=== PATIENT | female | born 1960 | race Caucasian/White ===

== ENCOUNTER 2021-05-01 10:18 | Outpatient (CLI) | payer OTHER, SELFPAY ==
--- NOTE | 2021-05-01 10:25 | MM_ITS ---
WS: [id number] BILATERAL SCREENING DIGITAL MAMMOGRAM WITH CAD HISTORY: SCREENING COMPARISON: 06/06/2019 and 03/02/2011 Bilateral CC and MLO views submitted. Computer aided detection analyzed. Breast composition: There are scattered areas of fibroglandular density. No suspicious masses, microc alcifications or architectural distortion. Stable soft tissue nodule with calcification in the anteri or RIGHT breast. No new mass or calcification. MM/[id number] IMPRESSION: BI-RADS: 2-Benign FOLLOW UP: 1 Year Follow-up
== END 2021-05-01 10:19 | disposition home or self-care (01) ==
LOC: RADSHAW 10:24
PROVIDERS: Family Provider Family Medicine; PCP Physician Assistant; Visit Provider Physician Assistant
DX: Z12.31 Encounter for screening mammogram for malignant neoplasm of breast (principal)
CPT/HCPCS: 77067

== ENCOUNTER 2022-03-11 11:21 | Outpatient (CLI) | payer OTHER, SELFPAY ==
--- NOTE | 2022-03-11 11:33 | MM_ITS ---
WS: [id number] DIAGNOSTIC BILATERAL 3D TOMOSYNTHESIS DIGITAL MAMMOGRAM WITH CAD Bilateral breast ultrasound, limited HISTORY: NIPPLE Discharge; mastodynia COMPARISON: 05/01/2021, 06/06/2019 TECHNIQUE: Bilateral craniocaudad, mediolateral oblique, and mediolateral views are submitted. Spot c ompression RIGHT and LEFT CC. Computer aided detection utilized. Breast composition: There are scattered areas of fibroglandular density. Palpable markers are placed along the anterior superior aspect of each breast. No underlying mass or distortion. There are no suha cifications or changes in the soft tissues. Similar to prior examinations. Bilateral breast ultrasound, limited. Ultrasound is directed into each breast in the area of pain. RIGHT breast image from 10-12 o'clock ar ound the nipple. There is some very minimally prominent ducts near the nipple. No soft tissue mass or distortion. The LEFT breast is imaged from 10-2 o'clock and near the nipple. No mass or distortion. Very minimally prominent ducts with no intraluminal filling defect. MM/[id number] IMPRESSION: BI-RADS: 2-Benign FOLLOW UP: 1 Year Follow-up
== END 2022-03-11 11:22 | disposition home or self-care (01) ==
LOC: RAD 11:22
PROVIDERS: PCP Physician Assistant; Visit Provider Physician Assistant
DX: N64.4 Mastodynia (principal); N64.52 Nipple discharge
CPT/HCPCS: 76642; 77062

== ENCOUNTER 2022-11-07 21:18 | Emergency (ER) | payer OTHER, SELFPAY ==
--- NOTE | 2022-11-07 21:23 | ECG_ITS ---
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 Measurements Intervals [place] Rate: 104 P: 54 MO: 142 QRS: 36 QRSD: 85 T: -5 QT: 335 QTc: 442 Interpretive Statements SINUS TACHYCARDIA POSSIBLE LEFT ATRIAL ENLARGEMENT [-0.1mV P-WAVE IN V1/V2] LOW QRS VOLTAGE IN PRECORDIAL LEADS [QRS DEFLECTION < 1.0 mV IN CHEST LEADS] NONSPECIFIC ST & T-WAVE ABNORMALITY ABNORMAL RHYTHM ECG Compared to ECG 10/04/2019 13:27:36 T-wave abnormality now present Sinus rhythm no longer present Short MO interval no longer present Electronically Signed On 11-10-2022 18:15:15 CATEGORY ANALYST by Jon Nagel M.D. [id number] f
[2022-11-07 21:27] VITALS: BP 145/89; PULSE 104; RESP 30; TEMP 36.6; O2SAT 98; BMI 36.0
--- NOTE | 2022-11-07 22:24 | XRR_ITS ---
PROCEDURE INFORMATION: Exam: XR Right Ribs Exam date and time: 11/07/2022 10:52 PM Age: 61 years old Clinical indication: Chest wall pain; Right; Additional info: R post lower rib pain from cough TECHNIQUE: Imaging protocol: Radiologic exam of the Right ribs. Views: 2 views. COMPARISON: CR XR chest 2V* [id number] 05/24/2016 7:44 AM FINDINGS: Bones/joints: Normal. Soft tissues: Normal. Other findings: Mild right hemidiaphragm elevation. XR/XR ribs RT 2V* [id number] IMPRESSION: No displaced right rib fracture or pneumothorax noted.
--- NOTE | 2022-11-07 22:24 | XRR_ITS ---
PROCEDURE INFORMATION: Exam: XR Chest Exam date and time: 11/07/2022 10:52 PM Age: 61 years old Clinical indication: Cough TECHNIQUE: Imaging protocol: Radiologic exam of the chest. Views: 2 views. COMPARISON: CR XR chest 2V* [id number] 05/24/2016 7:44 AM FINDINGS: Lungs: Unremarkable. No consolidation. Pleural spaces: Unremarkable. No pleural effusion. No pneumothorax. Heart/Mediastinum: Unremarkable. No cardiomegaly. Bones/joints: Mild spine DJD. Organs: Absent gallbladder. Mild right hemidiaphragm elevation. XR/XR chest 2V* [id number] IMPRESSION: No acute findings.
--- NOTE | 2022-11-07 22:37 | W.ED.BACK ---
HPI - Back Pain/Injury General: Chief Complaint: Back Pain/Injury Stated Complaint: SOB Time Seen by Provider: 11/07/22 21:52 Source: patient Mode of arrival: ambulatory Limitations: no limitations History of Present Illness: See nursing assessment. Patient reports that she has had cough for approximately 2 weeks after getting the flu. Patient reports cough has been productive of clear sputum. Yesterday she had a coughing episode that caused her to have pain in her right posterior lateral rib cage. She is here today because of the rib cage pain. She denies any fever. She states she had COVID in June. She states she was prescribed Z-Logan on but has not had her antibiotic pill today. She also has an albuterol inhaler that was prescribed. She states she is allergic to aspirin and sulfa. She states she does not tolerate NSAIDs. She takes only Tylenol for pain Associated symptoms: Deny abdominal pain, chills, fever(s), nausea or vomiting Review of Systems Const: Denies: fever(s) or chills Eyes: Denies: change in vision ENMT: Denies: throat pain Card: Reports: chest pain (Right posterior lateral rib cage pain); Denies: palpitations Resp: Reports: productive cough (Clear sputum); Denies: dyspnea or wheezing GI: Denies: abdominal pain, nausea or vomiting : Denies: flank pain Musc: Denies: neck pain or back pain Skin/Breast: Denies: rash or pruritus Neuro: Denies: headache(s) or numbness in extremities Psych: Denies: anxiety Winston/Lymph: Denies: enlarged lymph nodes PFSH ED Supplemental PFSH Information: COVID infection in June, influenza infection 2 weeks ago Physical Exam Const: COMMON NORMALS: no acute distress, patient oriented x3, no limitations and well nourished GENERAL APPEARANCE: cooperative HENMT: COMMON NORMALS: normocephalic and atraumatic HEAD & SCALP: normocephalic and atraumatic FACE & SINUS: normal facial exam Eye: COMMON NORMALS: EOMs intact bilaterally Neck/C-Spine: COMMON NORMALS: full ROM, no lymphadenopathy, supple and no meningeal signs GENERAL: Yes normal visual inspection Lymph: LYMPHATIC: no lymphadenopathy noted Chest: COMMONS NORMALS: normal inspection of the chest CHEST: No Ecchymosis present and No rash OTHER: Mild pain to right posterior lateral rib cage. No crepitus ecchymosis or step-off. Resp: COMMON NORMALS: normal respiratory effort, No retractions and clear to auscultation bilaterally EFFORT & INSPECTION: No respiratory distress AUSCULTATION: clear to auscultation bilaterally Cardio: COMMON NORMALS: regular rate, regular rhythm and Peripheral pulses 2+ throughout JUGULAR VENOUS DISTENTION: no JVD RATE: regular rate RHYTHM: regular rhythm PERIPHERAL PULSES: Peripheral pulses 2+ throughout GI: COMMON NORMALS: Normal to inspection, nondistended, normoactive bowel sounds present and non-tender OTHER: Morbid obesity : COMMON NORMALS: Yes no CVA tenderness BLADDER/KIDNEY EXAM: Yes no CVA tenderness Back/Pelvis: COMMON NORMALS: no CVA tenderness Extremity: COMMON NORMALS: normal to inspection, full ROM and capillary refill normal Neuro: COMMON NORMALS: patient oriented x3, CN's II-XII intact bilaterally, no focal motor deficits and no sensory deficits noted MENINGEAL SIGNS: Yes no meningeal signs Psych: COMMON NORMALS: mental status grossly normal and Normal thought process present THOUGHT PROCESS: Normal thought process present Skin: COMMON NORMALS: no rashes or lesions noted and no wounds GENERAL SKIN EXAM: no rashes or lesions noted Course Vital Signs: Vital signs: Vital Signs Temperature 97.9 F 11/07/22 21:27 Pulse Rate 104 H 11/07/22 21:27 Respiratory Rate 30 H 11/07/22 21:27 Blood Pressure 145/89 11/07/22 21:27 Pulse Oximetry 98 11/07/22 21:27 Oxygen Delivery Me thod 11/07/22 21:27 MDM - Back Pain/Injury Medical Decision Making Chest wall pain, possible rib fracture, possible costochondritis Labs Radiology Impressions Ribs X-Ray 11/07/22 22:24 IMPRESSION: No displaced right rib fracture or pneumothorax noted. Imaging Data CXR: My impression: PA lateral chest x-ray shows nothing acute. No infiltrates effusions or pneumothorax. Rib series on the right shows nothing acute. No rib fracture seen. EKG Data EKG 1: I personally reviewed and interpreted this EKG as follows: EKG interpretation date: 11/07/22 EKG interpretation time: 23:01 Interpretation: Impression sinus tachycardia with heart rate 104. Normal axis. Normal MO interval, normal QT interval. Normal ST segment. Normal QRS. Normal T waves normal P waves. Discharge Plan Discharge Patient Disposition: Home Clinical Impression: Chest wall pain, Rib pain on right side Condition: Stable Discharge Orders: Discharge ED (Routine); Ordered 11/07/22 Ordered By: Omar Alves Referrals: Leigh Smyth PA-C [Primary Care Provider] - 1-3 days Discharge Activity: Increase activity as tolerated Patient Instructions: Chest Wall Pain (ED) Activity Restrictions/Additional Instructions: Continue your Tylenol as needed for discomfort. No rib fracture seen on your x-rays. Coding Level of Care Code ED Server Security Administrator for Chg Fwd History Comprehensive Exam Comprehensive Medical Decision Making Moderate Complexity
[2022-11-07 23:19] VITALS: BP 172/82; PULSE 98; RESP 26; O2SAT 94
== END 2022-11-07 23:20 | disposition home or self-care (01) ==
PROVIDERS: Emergency Provider Family Medicine; PCP Physician Assistant
DX: R07.81 Pleurodynia (principal); R07.89 Other chest pain
CPT/HCPCS: 71046; 71100; 93005; 99283

== ENCOUNTER 2022-11-10 15:28 | Emergency (ER) | payer OTHER, SELFPAY ==
[2022-11-10 15:35] LABS: Glucose Point of Care 64 mg/dL (70-110)
--- NOTE | 2022-11-10 15:41 | ECG_ITS ---
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 Measurements Intervals [place] Rate: 91 P: 79 NM: 137 QRS: 78 QRSD: 153 T: 0 QT: 321 QTc: 396 Interpretive Statements SINUS RHYTHM WITH OCCASIONAL SUPRAVENTRICULAR PREMATURE COMPLEXES RIGHT BUNDLE BRANCH BLOCK [120+ ms QRS DURATION, UPRIGHT V1, 40+ ms S IN I/aVL/V4/V5/V6] ST DEPRESSION, CONSIDER SUBENDOCARDIAL INJURY [0.1+ mV ST DEPRESSION] INTERPRETATION BASED ON A DEFAULT AGE OF 40 YEARS Compared to ECG 10/04/2019 13:27:36 Right bundle-branch block now present ST (T wave) deviation now present Short NM interval no longer present Electronically Signed On 11-10-2022 18:14:39 EQUIPMENT TESTER by Jon Nagel M.D. [id number] f
[2022-11-10 16:09] LABS: Base Excess ABG -14.1 mmol/L (-2.0-2.0); Blood Gas Sample Site Femoral, left; Blood Gas Sample Type Arterial; Oxygen Device AMBU
--- NOTE | 2022-11-10 16:09 | PC.NURSE ---
SEE CODE SHEET IN CHART.
[2022-11-10 16:10] LABS: ABG PH Result 6.98 (7.35-7.45)
--- NOTE | 2022-11-10 16:13 | PC.NURSE ---
TOD [address] BAER
--- NOTE | 2022-11-10 16:23 | ED_ITS ---
HPI - General Adult General: Chief complaint: Cardiac Arrest/CPR Stated complaint: CODE BLUE Time Seen by Provider: 11/10/22 15:32 Source: EMS Mode of arrival: EMS History of Present Illness: 61-year-old female brought to the emergency room by EMS. She was at a primary care doctor's office and collapsed in the waiting room EMS arrived patient was still awake and verbal the EMS crew was transporting her approximately 4-5 blocks from the clinic to the ER in route patient related to cardiac arrest. On arrival CPR was in progress. See note below Review of Systems General: Reports: ROS unobtainable due to medical condition PFS ED Supplemental [facility] Information: due to endotracheal tube and due to medical condition Physical Exam HENMT: COMMON NORMALS: normocephalic and atraumatic HEAD & SCALP: normocephalic and atraumatic Resp: OTHER: No respiratory effort Cardio: OTHER: No auscultated heart sounds Procedures Intubation Time out performed: No Laryngoscope: Brodie ET Tube Size: 7.5 ET Tube Uncuffed: No Tube Secured Depth (cm): 23 Tube Secured Location: teeth Tube Placement Confirmation: visualized tube passing through cords, equal breath sounds bilaterally, no breath sounds over epigastrium and confirmation by capnometry Patient Tolerated Procedure: well Additional Comments: Patient intubated by direct laryngoscopy at pulse check MDM - General Adult Medical Decision Making Patient arrived with CPR in progress. We did briefly obtain ROSC but it lasted only about 3 to 4 minutes then patient's rhythm deteriorated back into PEA. See code flow sheet. On her blood gas her pH was 698. Potassium was over 6 she was given bicarb and calcium chloride. After the second effort we are unable to get any cardiac activity eventually patient deteriorated to PEA. Verified by bedside ultrasound no cardiac activity. Medical Records I reviewed the patient's medical records. Lab Data I reviewed the patient's lab results. Laboratory Results Specimen Type Arterial 11/10/22 15:58 Sample Site Femoral, left 11/10/22 15:58 ABG pH 6.98 (7.35-7.45) L* 11/10/22 15:58 ABG pCO2 76.0 mmHg (35-45) H* 11/10/22 15:58 ABG pO2 77.0 mmHg (80.0-100.0) L 11/10/22 15:58 ABG HCO3 18.0 mmol/L (22-26) L 11/10/22 15:58 ABG Base Excess -14.1 mmol/L (-2.0-2.0) L 11/10/22 15:58 Frandy Test N/a 11/10/22 15:58 Hematocrit 35.0 % (37-47) L 11/10/22 15:58 O2 Delivery Device Ambu 11/10/22 15:58 FiO2 100.0 % 11/10/22 15:58 Industrial Maintenance Technician ID Corinawe 11/10/22 15:58 POC Glucose 64 mg/dL (70-110) L 11/10/22 15:32 Critical Care Time Critical Care Time: Critical Care Time: Yes Total Critical Care Time: 45 Attestation: The high probability of a clinically significant, sudden or life threatening deterioration of the patient's cardiorespiratory system(s) required my full and direct attention, intervention and personal management. The critical care time is as shown. This time is in addition to time spent performing any reported procedures but includes the following: [x] Data and vital sign review and interpretation [x] Patient assessment, examination and intervention [x] Documentation [x] Medication orders and management Discharge Plan Discharge Patient Disposition: Clinical Impression: Cardiac arrest Condition: Stable Referrals: Leigh Smyth PA-C [Primary Care Provider] - Coding Level of Care Code ED Commercial Makeup Artist for Ariadne Rivera
--- NOTE | 2022-11-10 18:54 | PC.NURSE ---
report given to jozef bain.
--- NOTE | 2022-11-10 18:59 | PC.NURSE ---
MaribelIan Home here to picker box operator .
== END 2022-11-10 19:12 | disposition expired ==
PROVIDERS: Emergency Medicine; Emergency Provider Family Medicine; PCP Physician Assistant
DX: I46.9 Cardiac arrest, cause unspecified (principal)
CPT/HCPCS: 31500; 36416; 36600; 82803; 82962; 93005; 99291; J0171